=== PATIENT | male | born 1950 | race Caucasian/White ===

== ENCOUNTER → 2016-12-12 | Day surgery (SDC) | payer MEDICARE, BC ==
[~2016-12-12] VITALS: Ht 165.1 cm; Wt 77.0 kg
[~2016-12-12] MED LIST: AMPICILLIN/SULBAC 3 GM/NS 100 ML IV PRN; CHLORHEXIDINE GLUCONATE 2 % 1 PACK (2 CLOTHS) TOPICAL PRN; CLON0.5T PO; FAMOTIDINE 20 MG/2 ML VIAL ONE; HYDR-3516 PO; INSULIN HUMAN REGULAR 1,000 UNITS/10 ML VIAL SQ PRN; LACTATED RINGER'S 1000 ML IV PRN; LIDOCAINE 1%/EPINEPHrine 1:100,000 SOLN 20 ML VIAL ONE; LISI10TA3 PO; METOPROLOL TARTRATE 25 MG TAB PO PRN; MIDAZOLAM HCL 2 MG/2 ML VIAL ONE; OXYMETAZOLINE HCL 0.05% 15 ML NASAL SPRAY ONE; POVIDONE IODINE 5% (ANTISEPSIS KIT) 4 APPLICATIONS EACH NARE PRN; SODIUM CHLORID 0.9% 500 ML IV PRN; SODIUM CHLORIDE 0.9% INJ 100 ML ONE; VIST50CA PO; ZOCO40TA PO; fentaNYL CITRATE 250 MCG/5 ML AMP ONE
[2016-12-12 12:25] VITALS: PULSE 75
[2016-12-12 13:00] VITALS: TEMP 98
[2016-12-12 13:40] VITALS: BP 160/89; PULSE 69; RESP 14; O2SAT 98
--- NOTE | 2016-12-12 18:39 | EKG ---
Date Performed: 12/12/2016 Time Performed: 08:01:21 PTAGE: 66 years EKG: Sinus rhythm MARKED LEFT AXIS DEVIATION INCOMPLETE RIGHT BUNDLE BRANCH BLOCK MINIMAL VOLTAGE CRITERIA FOR LVH, CO NSIDER NORMAL VARIANT ABNORMAL ECG NO PREVIOUS TRACING DOCTOR: Mallory Zavala Interpretating Date/Time 12/12/2016 18:35:53
--- NOTE | 2016-12-18 08:12 | MP ---
cc: JOSÉ MIGUEL ROQUE M.D. DATE OF SURGERY: 12/12/[address] José Miguel Roque. PREOPERATIVE DIAGNOSIS 1. Nasal airway obstruction. 2. Bilateral nasal airway anterior stenosis. 3. Nasal septal deviation 4. Hypertrophy of inferior turbinates. POSTOPERATIVE DIAGNOSIS 1. Nasal airway obstruction. 2. Bilateral nasal airway anterior stenosis. 3. Nasal septal deviation 4. Hypertrophy of inferior turbinates. OPERATION PERFORMED 1. Repair of bilateral anterior nasal stenosis. 2. Open repair of nasal septal fracture. 3. Bilateral submucosal resection of inferior turbinates. INDICATIONS Aram Escobar is a 66-year-old man with a long history of nasal airway obstruction. On examination there is an angulated fracture of the anterior quadrangular cartilage which is displaced into the left nasal airway. The line of fracture is displaced into the right nasal airway posterior to the anterior nasal spine. DESCRIPTION OF OPERATION The patient was taken to OR #2 and placed in the supine position. Following induction of general anesthesia and intubation the nose was packed bilaterally with cotton pledgets saturated in 0.05% oxymetazoline. The nasal septal mucosa and inferior turbinates were injected with a total of 12 mL of 1% Xylocaine with epinephrine 1:100,000 and he was then prepped and draped for surgery. A hemitransfixion incision was made in the left nasal vestibule and through this incision the mucosa of septum was elevated from the quadrangular cartilage as far as the junction of the bony and cartilaginous septum. This exposed the quadrangular cartilage including the deflected segment. The anterior and a cumulative area of 2 x 2.5 cm of the quadrangular cartilage was removed in a piecemeal fashion preserving 1.5 cm dorsal and caudal cartilaginous struts. The anterior stenosis was then addressed. The anterior caudal strut was fully mobilized and approximately 3 mm was removed from its inferior end allowing it to return to the midline. It was then sewn in place to the soft tissue investing the anterior nasal spine using 4-0 Vicryl. Next, the mucosa was elevated from the bony septum and the bony septum was removed using Huger-Colin forceps and [place] septal forceps. The maxillary crest was removed using a 6 mm Della chisel and preserving the anterior nasal spine. The incision was then closed using a running suture of 4-0 chromic and the mucosal layers of septum were approximated to each other with a quilting stitch of 4-0 plain gut. The inferior turbinates were addressed next. They were fractured out medially and stab incisions were opened along their inferior surfaces. Through these incisions the submucosal soft tissue was reduced using a curet and preserving the conchal bone. The incision was then cauterized using the suction Bovie at 35 clemente and the remnants of the inferior turbinates were then re-lateralized to the lateral nasal wall. The nose was then packed with 5.5 cm Rapid Rhino packs each inflated with 5 mL of air and the procedure was terminated. The patient was reversed from anesthesia and taken to Recovery in good condition. There were no complications. Blood loss was 80 mL. José Miguel Roque MD [facility]/BT /7:01 AM /8:07 AM
== END | disposition home or self-care (01) ==
LOC: PHSDC 07:22
PROVIDERS: ATTEND Otolaryngology
DX: J34.2 Deviated nasal septum (principal); J34.3 Hypertrophy of nasal turbinates; J34.89 Other specified disorders of nose and nasal sinuses; R94.31 Abnormal electrocardiogram [ECG] [EKG]
CPT/HCPCS: 00160; 21335; 30140; 30465; 93005; J0295; J2250; J3010; J7120; J7040